=== PATIENT | male | born 1965 | race Caucasian/White ===

== ENCOUNTER 2025-03-11 12:07 | Inpatient (IN) ==
[2025-03-11] MEDS ORDERED: IOPAMIDOL 100 ML BOTTLE IV ONE (12:08)
[2025-03-11] MEDS: IPRATROPIUM/ALBUTEROL 3 ML AMPUL.NEB NEB ONE (12:30)
[2025-03-11] MEDS: methylPREDNISolone SOD SUCC 125 MG/2 ML VIAL IV ONE (12:39)
[2025-03-11 13:10] LABS: Basophils # (Auto) 0.02 K/mcL (0.00-0.30); Basophils % (Auto) 0.2 % (0.0-2.0); Eosinophils # (Auto) 0.21 K/mcL (0.00-0.70); Eosinophils % (Auto) 2.2 % (0.0-7.0); Hematocrit 48.4 % (40.1-51.0); Lymphocytes # (Auto) 1.33 K/mcL (1.50-4.80); Mean Cell Volume 90.6 fL (80.0-100.0); Mean Corpuscular HGB Conc 33.1 g/dL (31.0-36.0); Mean Platelet Volume 9.6 fL (8.8-12.5); Monocytes # (Auto) 0.55 K/mcL (0.10-0.90); Monocytes % (Auto) 5.8 % (1.0-12.0); Neutrophils % (Auto) 77.3 % (38.0-78.0); Platelet Count 238 K/mcL (140-440); RBC 5.34 M/mcL (4.63-6.08); Red Cell Distribution Width 15.8 % (11.5-14.5); WBC 9.5 K/mcL (4.5-11.0)
[2025-03-11 13:27] LABS: ALT/SGPT 25 U/L (<40); AST/SGOT 35 U/L (<40); Albumin/Globulin Ratio 1.4 (1.0-2.3); Alkaline Phosphatase 141 U/L (39-117); Bilirubin,Total 1.5 mg/dL (0.1-1.0); Blood Urea Nitrogen 19 mg/dL (8-23); Calcium 9.1 mg/dL (8.6-10.4); Carbon Dioxide 18 mmol/L (22-30); Chloride 99 mmol/L (96-108); Globulin 2.9 gm/dL (2.2-3.7); Glomerular Filtration Rate 80; Glucose 135 mg/dL (70-105); Potassium 4.3 mmol/L (3.3-5.1); Sodium 135 mmol/L (133-145)
[2025-03-11] MEDS: ASPIRIN 81 MG TAB.CHEW CHEWED ONE (14:05)
[2025-03-11] MEDS: cefTRIAXone 1 GM VIAL IV ONE (14:32)
[2025-03-11] MEDS: FUROSEMIDE 40 MG/4 ML VIAL IV ONE (15:54)
[2025-03-11 17:12] LABS: Amphetamine Screen,Urine Suspect positive; Barbiturate Screen,Urine None detected; Benzodiazepines Screen,Urine None detected; Cannabinoid Screen,Urine Suspect Positive; Cocaine Screen,Urine None detected; Fentanyl, Urine Screen None Detected; Opiate Screen,Urine None detected; Oxycodone, Urine Screen None detected; Phencyclidine Screen,Urine None detected
[2025-03-11] MEDS ORDERED: ONDANSETRON 4 MG/2 ML VIAL IV PRN (17:24)
[2025-03-11] MEDS ORDERED: MAGNESIUM SULFATE 2 GM/50 ML BAG IV PRN (17:24)
[2025-03-11] MEDS ORDERED: POTASSIUM CHLORIDE 20 MEQ TABLET PO PRN ×2 (17:24)
[2025-03-11] MEDS ORDERED: POTASSIUM CHLORIDE 40 MEQ in DEXTROSE 5% IN WATER 500 ML IV PRN (17:24)
[2025-03-11] MEDS: AZITHROMYCIN 500 MG in 0.9 % SODIUM CHLORIDE 250 ML IV SCH (18:45)
[2025-03-11] MEDS: 0.9 % SODIUM CHLORIDE 10 ML SYRINGE IV SCH (18:45)
[2025-03-11] MEDS: IPRATROPIUM/ALBUTEROL 3 ML AMPUL.NEB NEB SCH (19:20)
[2025-03-11] MEDS: DOCUSATE SODIUM 100 MG CAPSULE PO SCH (20:42)
[2025-03-11] MEDS: methylPREDNISolone SOD SUCC 40 MG/ML VIAL IV SCH (20:43)
[2025-03-12] MEDS: BUDESONIDE 0.5 MG/2 ML AMPUL.NEB NEB SCH (00:25)
[2025-03-12 06:04] LABS: ALT/SGPT 21 U/L (<40); AST/SGOT 25 U/L (<40); Albumin 3.8 gm/dL (3.2-5.2); Albumin/Globulin Ratio 1.1 (1.0-2.3); Alkaline Phosphatase 128 U/L (39-117); Bilirubin,Direct 0.3 mg/dL (<0.3); Bilirubin,Total 0.7 mg/dL (0.1-1.0); Blood Urea Nitrogen 28 mg/dL (8-23); Calcium 9.4 mg/dL (8.6-10.4); Carbon Dioxide 21 mmol/L (22-30); Chloride 99 mmol/L (96-108); Globulin 3.4 gm/dL (2.2-3.7); Glomerular Filtration Rate 91; Glucose 175 mg/dL (70-105); Lactate Dehydrogenase 170 U/L (135-225); Potassium 4.3 mmol/L (3.3-5.1); Sodium 134 mmol/L (133-145); Triglycerides 66 mg/dL (<150); Uric Acid 6.1 mg/dL (2.5-8.0)
[2025-03-12 07:39] LABS: Basophils # (Auto) 0.01 K/mcL (0.00-0.30); Basophils % (Auto) 0.1 % (0.0-2.0); Eosinophils # (Auto) 0 K/mcL (0.00-0.70); Eosinophils % (Auto) 0 % (0.0-7.0); Hematocrit 45.4 % (40.1-51.0); Hemoglobin 15.3 g/dL (13.7-17.5); Lymphocytes # (Auto) 0.73 K/mcL (1.50-4.80); Lymphocytes % (Auto) 8.4 % (15.5-49.0); Mean Cell Volume 90.4 fL (80.0-100.0); Mean Corpuscular HGB Conc 33.7 g/dL (31.0-36.0); Mean Platelet Volume 9.6 fL (8.8-12.5); Monocytes # (Auto) 0.29 K/mcL (0.10-0.90); Monocytes % (Auto) 3.3 % (1.0-12.0); Neutrophils % (Auto) 87.7 % (38.0-78.0); Platelet Count 223 K/mcL (140-440); RBC 5.02 M/mcL (4.63-6.08); WBC 8.7 K/mcL (4.5-11.0)
[2025-03-12] MEDS: ACETAMINOPHEN 325 MG TABLET PO PRN (07:40)
[2025-03-12] MEDS: COLCHICINE 0.6 MG CAPSULE PO SCH (09:00)
[2025-03-12] MEDS: LISINOPRIL 20 MG TABLET PO SCH (09:00)
[2025-03-12] MEDS: FOLIC ACID 1 MG TABLET PO SCH (09:00)
[2025-03-12] MEDS: ALLOPURINOL 300 MG TABLET PO SCH (09:00)
[2025-03-12] MEDS: ATORVASTATIN 10 MG TABLET PO SCH (09:01)
[2025-03-12] MEDS: ENOXAPARIN 40 MG/0.4 ML SYRINGE SQ SCH (09:01)
[2025-03-12] MEDS: NICOTINE 21 MG PATCH TOPICAL SCH (09:07)
[2025-03-12] MEDS: cefTRIAXone 1 GM VIAL IV SCH (09:08)
[2025-03-12] MEDS: IPRATROPIUM/ALBUTEROL 3 ML AMPUL.NEB NEB PRN (20:35)
[2025-03-13 05:56] LABS: C-Reactive Protein 4.59 mg/dL (0.03-0.80)
[2025-03-13 08:08] LABS: Blood Urea Nitrogen 35 mg/dL (8-23); Calcium 9.4 mg/dL (8.6-10.4); Carbon Dioxide 21 mmol/L (22-30); Chloride 101 mmol/L (96-108); Glomerular Filtration Rate 91; Glucose 191 mg/dL (70-105); Potassium 5.3 mmol/L (3.3-5.1); Sodium 138 mmol/L (133-145)
[2025-03-13] MEDS ORDERED: diphenhydrAMINE 25 MG CAPSULE PO PRN (08:52)
[2025-03-13] MEDS: BUTALB/ACETAMINOPHEN/CAFFEINE 1 TABLET PO ONE (09:06)
[2025-03-13] MEDS: guaiFENesin/CODEINE 10 ML UDC PO PRN (09:30)
[2025-03-13] MEDS: FUROSEMIDE 40 MG/4 ML VIAL IV ONE (09:30)
[2025-03-13] MEDS: SENNOSIDES 1 TABLET PO PRN (14:31)
[2025-03-13] MEDS: POLYETHYLENE GLYCOL 3350 17 GM PACKET PO PRN (16:51)
[2025-03-13] MEDS: MELATONIN 3 MG TABLET PO SCH (19:04)
[2025-03-13] MEDS: diphenhydrAMINE 25 MG CAPSULE PO SCH (20:37)
[2025-03-14 06:03] LABS: Blood Urea Nitrogen 32 mg/dL (8-23); C-Reactive Protein 6.41 mg/dL (0.03-0.80); Calcium 9.2 mg/dL (8.6-10.4); Carbon Dioxide 26 mmol/L (22-30); Chloride 97 mmol/L (96-108); Glomerular Filtration Rate 91; Glucose 151 mg/dL (70-105); Potassium 5.2 mmol/L (3.3-5.1); Sodium 133 mmol/L (133-145)
[2025-03-14] MEDS: IPRATROPIUM/ALBUTEROL 3 ML AMPUL.NEB NEB SCH (08:01)
[2025-03-14] MEDS: SODIUM ZIRCONIUM CYCLOSILICATE 5 GM PACKET PO SCH (08:08)
[2025-03-14] MEDS: METOCLOPRAMIDE 10 MG/2 ML VIAL IV PRN (09:24)
[2025-03-14] MEDS: NICOTINE 21 MG PATCH TOPICAL SCH (20:51)
[2025-03-15 06:10] LABS: Basophils # (Auto) 0.01 K/mcL (0.00-0.30); Basophils % (Auto) 0.1 % (0.0-2.0); Eosinophils # (Auto) 0 K/mcL (0.00-0.70); Eosinophils % (Auto) 0 % (0.0-7.0); Hematocrit 44.3 % (40.1-51.0); Hemoglobin 14.3 g/dL (13.7-17.5); Lymphocytes # (Auto) 1.51 K/mcL (1.50-4.80); Lymphocytes % (Auto) 13.3 % (15.5-49.0); Mean Cell Volume 93.3 fL (80.0-100.0); Mean Corpuscular HGB Conc 32.3 g/dL (31.0-36.0); Monocytes # (Auto) 0.89 K/mcL (0.10-0.90); Monocytes % (Auto) 7.9 % (1.0-12.0); Neutrophils % (Auto) 76.8 % (38.0-78.0); Platelet Count 274 K/mcL (140-440); RBC 4.75 M/mcL (4.63-6.08); WBC 11.3 K/mcL (4.5-11.0)
[2025-03-15 06:24] LABS: Blood Urea Nitrogen 29 mg/dL (8-23); C-Reactive Protein 4.05 mg/dL (0.03-0.80); Calcium 9.3 mg/dL (8.6-10.4); Carbon Dioxide 29 mmol/L (22-30); Chloride 97 mmol/L (96-108); Glomerular Filtration Rate 91; Glucose 162 mg/dL (70-105); Potassium 5.2 mmol/L (3.3-5.1); Sodium 135 mmol/L (133-145)
[2025-03-15] MEDS: LISINOPRIL 20 MG TABLET PO SCH (09:08)
[2025-03-18 19:07] LABS: Amphetamine Screen Positive
== END 2025-03-15 14:51 | disposition home or self-care (01) | DRG 190 ==
LOC: ED 12:07 → ICU 17:18
PROVIDERS: ADMIT Internal Medicine; ATTEND Internal Medicine